=== PATIENT | female | born 1975 | race American Indian/Alaskan Native ===

== ENCOUNTER 2017-05-04 01:35 | Emergency (ER) | payer SELFPAY ==
[2017-05-04 02:34] VITALS: BP 125/91
--- NOTE | 2017-05-04 04:12 | Emergency Department Report ---
ED Medical Clearance HPI - General Chief complaint: Medical Clearance Stated complaint: POSS TOXINS INGESTION Time Seen by Provider: 05/04/17 03:39 Source: patient Mode of arrival: Ambulatory Limitations: No Limitations - History of Present Illness Initial comments: is a 42-year-old female that accidentally ingested tea tree oil of approximately 1 mL. He states after she ingested it she self-inflicted vomiting. Patient also called poison control and they told her that no treatment was needed needed only to drink water. we called poison control here and poison control stated there is no further treatment needed just increase water intake for now. Patient denies any symptoms of abdominal pain, upset stomach chest pain, or shortness of breath. Patient denies headache or confusion. MD Complaint: medical clearance request -: Sudden Place: home Alledged Intoxication: No Compliant with Home Medications: No Traumatic Symptoms: denies traumatic injury Treatments Prior to Arrival: none Home medications: Previous Rx's Medication Instructions Recorded Last Taken Type Promethazine [Phenergan] 25 mg PO Q6H PRN #12 tablet 11/10/13 Unknown Rx metroNIDAZOLE [Flagyl] 500 mg PO BID #14 tablet 11/10/13 Unknown Rx Allergies/Adverse reactions: Allergies Allergy/AdvReac Type Severity Reaction Status Date / Time No Known Allergies Allergy Verified 11/09/13 21:38 ED Review of Systems ROS: Stated complaint: POSS TOXINS INGESTION Other details as noted in HPI Comment: All other systems reviewed and negative Constitutional: no symptoms reported, see HPI Eyes: as per HPI ENT: as per HPI Respiratory: no symptoms reported, see HPI Cardiovascular: as per HPI Endocrine: no symptoms reported, see HPI Gastrointestinal: as per HPI Genitourinary: as per HPI Musculoskeletal: as per HPI Skin: as per HPI Neurological: as per HPI Psychiatric: as per HPI Hematological/Lymphatic: as per HPI ED Past Medical Hx - Past Medical History Previous Medical History?: Yes Additional medical history: Irregular HR - Surgical History Past Surgical History?: Yes Additional Surgical History: ruptured ovarian cyst - Social History Smoking Status: Current Every Day Smoker Substance Use Type: None - Medications Home Medications: Home Medications Medication Instructions Recorded Confirmed Last Taken Type Promethazine [Phenergan] 25 mg PO Q6H PRN #12 tablet 11/10/13 Unknown Rx metroNIDAZOLE [Flagyl] 500 mg PO BID #14 tablet 11/10/13 Unknown Rx ED Physical Exam - General Limitations: No Limitations General appearance: alert, in no apparent distress - Head Head exam: Present: atraumatic, normocephalic - Eye Eye exam: Present: normal appearance - ENT ENT exam: Present: mucous membranes moist - Neck Neck exam: Present: normal inspection - Respiratory Respiratory exam: Present: normal lung sounds bilaterally. Absent: respiratory distress - Cardiovascular Cardiovascular Exam: Present: regular rate, normal rhythm. Absent: systolic murmur, diastolic murmur, rubs, gallop - GI/Abdominal GI/Abdominal exam: Present: soft, normal bowel sounds - Extremities Exam Extremities exam: Present: normal inspection - Back Exam Back exam: Present: normal inspection - Neurological Exam Neurological exam: Present: alert, oriented X3 - Psychiatric Psychiatric exam: Present: normal affect, normal mood - Skin Skin exam: Present: warm, dry, intact, normal color. Absent: rash ED Course Vital Signs 05/04/17 02:30 Temperature 98.7 F Pulse Rate 76 Respiratory 18 Rate Blood Pressure 125/91 [Right] O2 Sat by Pulse 100 Oximetry ED Medical Decision Making - Medical Decision Making Patient instructed to recommendations per poison control to increase water. patient stable for discharge home. Patient medically cleared - Differential Diagnosis accidetnal ingestion ED Disposition Clinical Impression: Accidental ingestion of substance Disposition: DC-01 TO HOME OR SELFCARE Is pt being admited?: No Does the pt Need Aspirin: No Condition: Stable Instructions: Food Poisoning (ED) Additional Instructions: Patient to follow up with primary care in 3-5 days. Increase water. Patient to return to ER if symptoms/condition worsens Referrals: PRIMARY CARE, [Primary Care Provider] - 3-5 Days Time of Disposition: 04:13
== END 2017-05-04 04:00 | disposition home or self-care (01) ==
LOC: ED 01:35
DX: T65.891A Toxic effect of other specified substances, accidental (unintentional), initial encounter (principal); F17.210 Nicotine dependence, cigarettes, uncomplicated; Y92.89 Other specified places as the place of occurrence of the external cause
CPT/HCPCS: 99281